=== PATIENT | female | born 1980 | race American Indian/Alaskan Native ===

== ENCOUNTER 2017-09-18 10:16 | Outpatient (CLI) | payer OTHER ==
--- NOTE | 2017-09-18 13:02 | Mammography Report ---
BILATERAL DIGITAL AUGMENTED DIAGNOSTIC MAMMOGRAM WITH CAD: 09/18/17 10:16:00 CLINICAL: 37 year-old with palpable right breast lumps. COMPARISON:None. FINDINGS: Bilateral MLO and CC views with and without implant displacement demonstrate heterogeneously dense breasts, which may obscure small masses. Multiple oval and round circumscribed right breast masses. The largest is in the upper breast and measures 4.2 cm. No architectural distortion or suspicious calcifications. Intact subpectoral implants. The left breast is negative. Ultrasound of the right breast was performed and demonstrated multiple benign cysts which correlate with the mammographic masses. The largest is at 10 o'clock 10 cm from the nipple and measures 3.8 x 2.1 x 3.0 cm. A complex cyst with low level internal echoes measure 7 x 5 x 6 mm at 10 o'clock 4 cm from the nipple. No solid mass or shadowing. IMPRESSION: Multiple large and small right benign cysts. No suspicious finding. BI-RADS CATEGORY: 2 -- Benign RECOMMENDATION: Clinical followup and routine mammographic screening based on ACS guidelines.
== END 2017-09-18 10:17 | disposition home or self-care (01) ==
LOC: MAMMO 10:16
PROVIDERS: ATTEND Obstetrics & Gynecology
DX: N60.01 Solitary cyst of right breast (principal); Z80.3 Family history of malignant neoplasm of breast; Z98.82 Breast implant status
CPT/HCPCS: 77066